=== PATIENT | female | born 1935 | race Caucasian/White ===

== ENCOUNTER 2020-05-02 20:56 | Emergency (ER) | payer MEDICARE, BC ==
[~2020-05-02 20:56] MED LIST: BACTROBAN OINT22 GM EXT; KEFLEX CAP 500500 MG PO
[2020-05-02 21:39] LABS: RED BLOOD COUNT 4.36 M/UL (4.00-5.10); WHITE BLOOD COUNT 6.9 K/UL (4.5-11.0)
[2020-05-02 22:47] LABS: BUN/CREATININE RATIO 30 (0-10)
[2020-05-02] MEDS ORDERED: METOPROLOL SUCC25 MG PO (22:57)
== END 2020-05-02 23:15 | disposition home or self-care (01) ==
LOC: ER1 20:56
PROVIDERS: Family Medicine
DX: I10 Essential (primary) hypertension (principal); R42 Dizziness and giddiness; E11.9 Type 2 diabetes mellitus without complications; Z88.1 Allergy status to other antibiotic agents; Z79.899 Other long term (current) drug therapy
CPT/HCPCS: 80053; 82550; 82553; 83874; 84439; 84443; 84484; 85025; 93005; 99284

== ENCOUNTER → 2020-05-24 | Outpatient (CLI) | payer MEDICARE, BC ==
[~2020-05-24] MED LIST changes: +METOPROLOL SUCC25 MG PO
== END ==
LOC: MAMO 14:49
DX: Z12.31 Encounter for screening mammogram for malignant neoplasm of breast (principal)
CPT/HCPCS: 77063; 77067

== ENCOUNTER 2020-07-13 15:07 | Emergency (ER) | payer MEDICARE, BC | END 2020-07-13 18:20 | disposition home or self-care (01) | LOC: ER1 15:07 | DX: M50.30 Other cervical disc degeneration, unspecified cervical region (principal); I10 Essential (primary) hypertension; E11.9 Type 2 diabetes mellitus without complications; Z90.49 Acquired absence of other specified parts of digestive tract; Z90.710 Acquired absence of both cervix and uterus; Z88.6 Allergy status to analgesic agent; Z88.5 Allergy status to narcotic agent | CPT/HCPCS: 72125; 73030; 99284 ==

== ENCOUNTER → 2020-08-27 | Outpatient (CLI) | payer MEDICARE, BC | LOC: LAB 16:17 | PROVIDERS: Family Medicine | DX: M25.562 Pain in left knee (principal); M79.652 Pain in left thigh; I10 Essential (primary) hypertension | CPT/HCPCS: 73564; 80048; 85379 ==

== ENCOUNTER → 2020-08-28 | Outpatient (CLI) | payer MEDICARE | LOC: KOH-I 16:00 | DX: R79.89 Other specified abnormal findings of blood chemistry (principal); M25.562 Pain in left knee; M79.652 Pain in left thigh; M71.22 Synovial cyst of popliteal space [Baker], left knee | CPT/HCPCS: 93971 ==